=== PATIENT | female | born 1950 | race Caucasian/White ===

== ENCOUNTER 2023-09-28 07:43 | Day surgery (SDC) | payer OTHER, BC ==
[2023-09-23 15:47] VITALS: BMI 20.8
[2023-09-28] MEDS ORDERED: PROPOFOL 80 ML ONE (07:47)
[2023-09-28 08:05] VITALS: RESP 18
[2023-09-28 09:20] VITALS: TEMP 96.9
[2023-09-28 09:33] VITALS: BP 124/65; PULSE 74
== END 2023-09-28 09:39 | disposition home or self-care (01) ==
LOC: FASU-ENDO 07:43
PROVIDERS: ATTEND Internal Medicine Gastroenterology
PROC: 0DB78ZX Excision of Stomach, Pylorus, Via Natural or Artificial Opening Endoscopic, Diagnostic (ICD-10-PCS; 2023-09-28)
PROC: 0DB28ZX Excision of Middle Esophagus, Via Natural or Artificial Opening Endoscopic, Diagnostic (ICD-10-PCS; 2023-09-28)
PROC: 0DB48ZX Excision of Esophagogastric Junction, Via Natural or Artificial Opening Endoscopic, Diagnostic (ICD-10-PCS; 2023-09-28)
PROC: 0DB98ZX Excision of Duodenum, Via Natural or Artificial Opening Endoscopic, Diagnostic (ICD-10-PCS; principal; 2023-09-28 08:58)
DX: R13.10 Dysphagia, unspecified (principal); K25.3 Acute gastric ulcer without hemorrhage or perforation
CPT/HCPCS: 88305-TC; 88342-TC